=== PATIENT | female | born 1955 | race Caucasian/White ===

== ENCOUNTER 2018-04-12 11:22 | Outpatient (CLI) | payer OTHER ==
[~2018-04-12] VITALS: Ht 157.5 cm; Wt 57.6 kg
== END 2018-04-12 13:22 | disposition home or self-care (01) ==
LOC: ECT 11:22
DX: F33.3 Major depressive disorder, recurrent, severe with psychotic symptoms (principal); D64.9 Anemia, unspecified; E78.5 Hyperlipidemia, unspecified; E03.9 Hypothyroidism, unspecified; E28.39 Other primary ovarian failure

== ENCOUNTER 2018-04-14 10:19 | Outpatient (RCR) | payer OTHER ==
[~2018-04-14] VITALS: Ht 157.5 cm; Wt 57.6 kg
[2018-04-14 09:53] VITALS: BP 130/83
[2018-04-14 10:15] VITALS: BP 141/75
[2018-04-14 10:20] VITALS: BP 136/65
[2018-04-14] MEDS ORDERED: Methohexital Sodium Syr 100mg/10ml IVP ONE (10:20)
[2018-04-14] MEDS ORDERED: NS 500ML ONE (10:20)
[2018-04-14] MEDS ORDERED: Succinylcholine 20mg/ml 10ml vial ONE (10:20)
[2018-04-14 10:25] VITALS: BP 125/69
[2018-04-14 10:30] VITALS: BP 128/71
[2018-04-14 10:35] VITALS: BP 151/74
[2018-04-17] MEDS ORDERED: Methohexital Sodium Syr 100mg/10ml IVP ONE (06:00)
[2018-04-17] MEDS ORDERED: NS 500ML ONE (06:00)
[2018-04-17] MEDS ORDERED: Succinylcholine 20mg/ml 10ml vial ONE (06:00)
[2018-04-17 08:54] VITALS: BP 138/88
[2018-04-17 09:10] VITALS: BP 134/56
[2018-04-17 09:15] VITALS: BP 135/68
[2018-04-17 09:20] VITALS: BP 144/99
[2018-04-17 09:25] VITALS: BP 133/76
[2018-04-19] MEDS ORDERED: Methohexital Sodium Syr 100mg/10ml IVP ONE (06:00)
[2018-04-19] MEDS ORDERED: NS 500ML ONE (06:00)
[2018-04-19] MEDS ORDERED: Succinylcholine 20mg/ml 10ml vial ONE (06:00)
[2018-04-19 08:40] VITALS: BP 122/81
[2018-04-19 08:55] VITALS: BP 127/70
[2018-04-19 09:00] VITALS: BP 132/73
[2018-04-19 09:05] VITALS: BP 130/77
[2018-04-19 09:10] VITALS: BP 132/82
[2018-04-21 08:37] VITALS: BP 121/78
[2018-04-21 08:50] VITALS: BP 141/82
[2018-04-21 08:55] VITALS: BP 141/82
[2018-04-21 09:00] VITALS: BP 139/60
[2018-04-21] MEDS ORDERED: Methohexital Sodium Syr 100mg/10ml IVP ONE (09:00)
[2018-04-21] MEDS ORDERED: Succinylcholine 20mg/ml 10ml vial ONE (09:00)
[2018-04-21] MEDS ORDERED: NS 500ML ONE (09:00)
[2018-04-21 09:05] VITALS: BP 128/82
[2018-04-24] MEDS ORDERED: Succinylcholine 20mg/ml 10ml vial ONE (06:00)
[2018-04-24] MEDS ORDERED: NS 500ML ONE (06:00)
[2018-04-24] MEDS ORDERED: Methohexital Sodium Syr 100mg/10ml IVP ONE (06:00)
[2018-04-24 08:53] VITALS: BP 107/78
[2018-04-24 09:06] VITALS: BP 128/76
[2018-04-24 09:11] VITALS: BP 134/79
[2018-04-24 09:16] VITALS: BP 120/64
[2018-04-24 09:21] VITALS: BP 124/61
[2018-04-26] MEDS ORDERED: Succinylcholine 20mg/ml 10ml vial ONE (06:00)
[2018-04-26 08:30] VITALS: BP 107/75
[2018-04-26 08:45] VITALS: BP 121/68
[2018-04-26 08:50] VITALS: BP 127/57
[2018-04-26 08:55] VITALS: BP 125/68
[2018-04-26 09:00] VITALS: BP 127/77
[2018-04-27] MEDS ORDERED: Esmolol 100mg/10ml Inj ONE (22:46)
[2018-04-27] MEDS ORDERED: NS 500ML ONE (22:46)
[2018-04-27] MEDS ORDERED: Succinylcholine 20mg/ml 10ml vial ONE (22:46)
== END 2018-04-27 | disposition home or self-care (01) ==
LOC: ECT 10:19
DX: F33.3 Major depressive disorder, recurrent, severe with psychotic symptoms (principal); D64.9 Anemia, unspecified; E03.9 Hypothyroidism, unspecified; E78.5 Hyperlipidemia, unspecified
CPT/HCPCS: 90870; J0330; J7040

== ENCOUNTER 2018-04-28 08:33 | Outpatient (RCR) | payer OTHER ==
[~2018-04-28] VITALS: Ht 157.5 cm; Wt 58.0 kg
[2018-04-28] MEDS ORDERED: Methohexital Sodium Syr 100mg/10ml IVP ONE (08:34)
[2018-04-28] MEDS ORDERED: Succinylcholine 20mg/ml 10ml vial ONE ×2 (08:34)
[2018-04-28] MEDS ORDERED: NS 500ML ONE (08:34)
[2018-04-28 08:46] VITALS: BP 91/59
[2018-04-28 09:05] VITALS: BP 129/67
[2018-04-28 09:10] VITALS: BP 114/65
[2018-04-28 09:15] VITALS: BP 114/64
[2018-04-28 09:20] VITALS: BP 112/57
[2018-05-01] MEDS ORDERED: Methohexital Sodium Syr 100mg/10ml IVP ONE (08:00)
[2018-05-01] MEDS ORDERED: NS 500ML ONE (08:00)
[2018-05-01] MEDS ORDERED: Succinylcholine 20mg/ml 10ml vial ONE (08:00)
[2018-05-01 09:05] VITALS: BP 103/72
[2018-05-01 09:20] VITALS: BP 142/77
[2018-05-01 09:25] VITALS: BP 135/73
[2018-05-01 09:30] VITALS: BP 130/69
[2018-05-01 09:35] VITALS: BP 126/72
[2018-05-08] MEDS ORDERED: Methohexital Sodium Syr 100mg/10ml IVP ONE (07:00)
[2018-05-08] MEDS ORDERED: Succinylcholine 20mg/ml 10ml vial ONE (07:00)
[2018-05-08] MEDS ORDERED: NS 500ML ONE (07:00)
[2018-05-08 07:38] VITALS: BP 96/67
[2018-05-08 07:55] VITALS: BP 130/62
[2018-05-08 08:00] VITALS: BP 130/67
[2018-05-08 08:05] VITALS: BP 137/70
[2018-05-08 08:10] VITALS: BP 134/66
[2018-05-22] MEDS ORDERED: Methohexital Sodium Syr 100mg/10ml IVP ONE (06:00)
[2018-05-22] MEDS ORDERED: NS 500ML ONE (06:00)
[2018-05-22] MEDS ORDERED: Succinylcholine 20mg/ml 10ml vial ONE (06:00)
[2018-05-22 07:26] VITALS: BP 117/76
[2018-05-22] MEDS ORDERED: Atropine Sulfate 0.4mg/ml inj IVP PRN (07:48)
[2018-05-22 07:50] VITALS: BP 132/76
[2018-05-22 07:55] VITALS: BP 145/78
[2018-05-22 08:00] VITALS: BP 146/81
[2018-05-22 08:05] VITALS: BP 138/81
== END 2018-05-28 | disposition home or self-care (01) ==
LOC: ECT 08:33
DX: F33.3 Major depressive disorder, recurrent, severe with psychotic symptoms (principal)
CPT/HCPCS: 90870; J0330; J7040

== ENCOUNTER 2018-06-05 06:17 | Outpatient (RCR) | payer OTHER ==
[~2018-06-05] VITALS: Ht 157.5 cm; Wt 57.6 kg
[2018-06-05] MEDS ORDERED: NS 500ML ONE (06:18)
[2018-06-05] MEDS ORDERED: Methohexital Sodium Syr 100mg/10ml IVP ONE (06:18)
[2018-06-05] MEDS ORDERED: Succinylcholine 20mg/ml 10ml vial ONE (06:18)
[2018-06-05 07:41] VITALS: BP 119/85
[2018-06-05 07:55] VITALS: BP 154/77
[2018-06-05 08:00] VITALS: BP 151/70
[2018-06-05 08:05] VITALS: BP 143/73
[2018-06-05 08:10] VITALS: BP 135/77
== END 2018-06-27 | disposition home or self-care (01) ==
LOC: ECT 06:17
DX: F33.3 Major depressive disorder, recurrent, severe with psychotic symptoms (principal)
CPT/HCPCS: 90870; J0330; J7040

== ENCOUNTER 2018-06-30 05:07 | Outpatient (RCR) | payer OTHER ==
[~2018-06-30] VITALS: Ht 30.5 cm; Wt 0.5 kg
[2018-06-30] MEDS ORDERED: NS 500ML ONE (05:08)
[2018-06-30] MEDS ORDERED: Succinylcholine 20mg/ml 10ml vial ONE (05:08)
[2018-06-30] MEDS ORDERED: Methohexital Sodium Syr 100mg/10ml IVP ONE (05:08)
[2018-06-30 07:47] VITALS: BP 120/78
[2018-06-30 07:58] VITALS: BP 132/53
[2018-06-30 08:03] VITALS: BP 131/48
[2018-06-30 08:08] VITALS: BP 119/56
[2018-06-30 08:13] VITALS: BP 129/74
[2018-07-28 07:48] VITALS: BP 131/82
[2018-07-28 08:00] VITALS: BP 140/83
[2018-07-28 08:05] VITALS: BP 134/73
[2018-07-28 08:10] VITALS: BP 128/71
[2018-07-28 08:15] VITALS: BP 139/83
[2018-07-28] MEDS ORDERED: NS 500ML ONE (09:00)
[2018-07-28] MEDS ORDERED: Methohexital Sodium Syr 100mg/10ml IVP ONE (09:00)
[2018-07-28] MEDS ORDERED: Succinylcholine 20mg/ml 10ml vial ONE (09:00)
== END 2018-07-28 | disposition home or self-care (01) ==
LOC: ECT 05:07
DX: F33.3 Major depressive disorder, recurrent, severe with psychotic symptoms (principal)
CPT/HCPCS: 90870; J0330; J7040

== ENCOUNTER 2018-08-25 04:18 | Outpatient (RCR) | payer OTHER ==
[~2018-08-25] VITALS: Ht 30.5 cm; Wt 0.5 kg
[2018-08-25 07:49] VITALS: BP 128/84
[2018-08-25 08:05] VITALS: BP 145/65
[2018-08-25 08:10] VITALS: BP 136/72
[2018-08-25 08:15] VITALS: BP 150/75
[2018-08-25 08:20] VITALS: BP 167/81
== END 2018-08-27 | disposition home or self-care (01) ==
LOC: ECT 04:18
DX: F33.3 Major depressive disorder, recurrent, severe with psychotic symptoms (principal)
CPT/HCPCS: 90870

== ENCOUNTER 2018-09-22 05:03 | Outpatient (RCR) | payer OTHER ==
[~2018-09-22] VITALS: Ht 30.5 cm; Wt 0.5 kg
[2018-09-22] MEDS ORDERED: Methohexital Sodium 500mg Vial IVP ONE (05:04)
[2018-09-22] MEDS ORDERED: Succinylcholine 20mg/ml 10ml vial ONE (05:04)
[2018-09-22] MEDS ORDERED: NS 500ML ONE (05:04)
[2018-09-22 08:07] VITALS: BP 131/87
[2018-09-22 08:25] VITALS: BP 141/77
[2018-09-22 08:30] VITALS: BP 141/75
[2018-09-22 08:35] VITALS: BP 145/87
[2018-09-22 08:40] VITALS: BP 157/80
== END 2018-09-27 | disposition home or self-care (01) ==
LOC: ECT 05:03
DX: F33.3 Major depressive disorder, recurrent, severe with psychotic symptoms (principal)
CPT/HCPCS: 90870; J0330; J3490; J7040

== ENCOUNTER 2018-10-20 04:21 | Outpatient (RCR) | payer OTHER ==
[~2018-10-20] VITALS: Ht 157.5 cm; Wt 57.6 kg
[2018-10-20] MEDS ORDERED: NS 500ML ONE (04:22)
[2018-10-20] MEDS ORDERED: Methohexital Sodium Syr 100mg/10ml IVP ONE (04:22)
[2018-10-20] MEDS ORDERED: Succinylcholine 20mg/ml 10ml vial ONE (04:22)
[2018-10-20 07:53] VITALS: BP 130/83
[2018-10-20 08:05] VITALS: BP 139/67
[2018-10-20 08:10] VITALS: BP 139/71
[2018-10-20 08:15] VITALS: BP 139/71
[2018-10-20 08:20] VITALS: BP 147/72
== END 2018-10-28 | disposition home or self-care (01) ==
LOC: ECT 04:21
DX: F33.3 Major depressive disorder, recurrent, severe with psychotic symptoms (principal)
CPT/HCPCS: 90870; J0330; J7040

== ENCOUNTER 2018-11-17 04:26 | Outpatient (RCR) | payer OTHER ==
[~2018-11-17] VITALS: Ht 157.5 cm; Wt 57.6 kg
[2018-11-17] MEDS ORDERED: NS 500ML ONE (06:00)
[2018-11-17] MEDS ORDERED: Succinylcholine 20mg/ml 10ml vial ONE (06:00)
[2018-11-17] MEDS ORDERED: Methohexital Sodium Syr 100mg/10ml IVP ONE (06:00)
[2018-11-17 07:45] VITALS: BP 152/92
[2018-11-17 08:00] VITALS: BP 147/75
[2018-11-17 08:05] VITALS: BP 148/89
[2018-11-17 08:10] VITALS: BP 166/85
[2018-11-17 08:15] VITALS: BP 157/81
== END 2018-11-27 | disposition home or self-care (01) ==
LOC: ECT 04:26
DX: F33.3 Major depressive disorder, recurrent, severe with psychotic symptoms (principal)
CPT/HCPCS: 90870; J0330; J7040

== ENCOUNTER → 2019-10-01 | Outpatient (CLI) | payer OTHER | END | disposition home or self-care (01) | LOC: ECT 12:07 | DX: F33.3 Major depressive disorder, recurrent, severe with psychotic symptoms (principal); E03.9 Hypothyroidism, unspecified; E78.5 Hyperlipidemia, unspecified; Z79.899 Other long term (current) drug therapy; Z88.2 Allergy status to sulfonamides ==

== ENCOUNTER 2019-10-08 07:29 | Outpatient (RCR) | payer OTHER ==
[~2019-10-08] VITALS: Ht 157.5 cm; Wt 53.5 kg
[2019-10-08] VITALS (8 sets, daily range): BP systolic 133–149; BP diastolic 71–85
[~2019-10-08 07:29] MED LIST: Methohexital Sodium Syr 100mg/10ml IVP ONE; NS 500ML ONE; Succinylcholine 20mg/ml 10ml vial ONE
[2019-10-08] MEDS ORDERED: Succinylcholine 20mg/ml 10ml vial ONE (07:30)
[2019-10-08] MEDS ORDERED: Methohexital Sodium Syr 100mg/10ml IVP ONE (07:30)
[2019-10-08] MEDS ORDERED: NS 500ML ONE (07:30)
[2019-10-08] MEDS ORDERED: Atropine Sulfate 0.4mg/ml inj IVP PRN (09:14)
[2019-10-08] MEDS ORDERED: Lidocaine 2% 100mg/5ml Carp IV PRN (09:14)
[2019-10-10] VITALS (7 sets, daily range): BP systolic 130–140; BP diastolic 64–88
[2019-10-10] MEDS ORDERED: Methohexital Sodium Syr 100mg/10ml IVP ONE (07:00)
[2019-10-10] MEDS ORDERED: Succinylcholine 20mg/ml 10ml vial ONE (07:00)
[2019-10-10] MEDS ORDERED: NS 500ML ONE (07:00)
[2019-10-10] MEDS ORDERED: Atropine Sulfate 0.4mg/ml inj IVP PRN (09:14)
[2019-10-12] VITALS (7 sets, daily range): BP systolic 130–148; BP diastolic 63–94
[2019-10-12] MEDS ORDERED: Methohexital Sodium Syr 100mg/10ml IVP ONE (07:00)
[2019-10-12] MEDS ORDERED: Succinylcholine 20mg/ml 10ml vial ONE (07:00)
[2019-10-12] MEDS ORDERED: NS 500ML ONE (07:00)
[2019-10-15] VITALS (7 sets, daily range): BP systolic 115–127; BP diastolic 60–75
[2019-10-15] MEDS ORDERED: NS 500ML ONE (09:00)
[2019-10-15] MEDS ORDERED: Succinylcholine 20mg/ml 10ml vial ONE (09:00)
[2019-10-15] MEDS ORDERED: Methohexital Sodium Syr 100mg/10ml IVP ONE (09:00)
[2019-10-15] MEDS ORDERED: Atropine Sulfate 0.4mg/ml inj IVP PRN (09:29)
[2019-10-17 08:43] VITALS: BP 128/84
[2019-10-17 08:55] VITALS: BP 125/64
[2019-10-17] MEDS ORDERED: Succinylcholine 20mg/ml 10ml vial ONE (09:00)
[2019-10-17] MEDS ORDERED: NS 500ML ONE (09:00)
[2019-10-17] MEDS ORDERED: Methohexital Sodium Syr 100mg/10ml IVP ONE (09:00)
[2019-10-17 09:05] VITALS: BP 138/70
[2019-10-17 09:10] VITALS: BP 144/72
[2019-10-17 09:15] VITALS: BP 145/62
[2019-10-17 09:20] VITALS: BP 146/64
[2019-10-19] VITALS (7 sets, daily range): BP systolic 123–145; BP diastolic 67–82
[2019-10-22] VITALS (7 sets, daily range): BP systolic 125–139; BP diastolic 67–87
[2019-10-22] MEDS ORDERED: NS 500ML ONE (08:00)
[2019-10-22] MEDS ORDERED: Methohexital Sodium Syr 100mg/10ml IVP ONE (08:00)
[2019-10-22] MEDS ORDERED: Succinylcholine 20mg/ml 10ml vial ONE (08:00)
[2019-10-22] MEDS ORDERED: Atropine Sulfate 0.4mg/ml inj IVP PRN (08:44)
[2019-10-24] VITALS (7 sets, daily range): BP systolic 122–146; BP diastolic 68–79
[2019-10-24] MEDS ORDERED: NS 500ML ONE (07:00)
[2019-10-24] MEDS ORDERED: Succinylcholine 20mg/ml 10ml vial ONE (07:00)
[2019-10-24] MEDS ORDERED: Methohexital Sodium Syr 100mg/10ml IVP ONE (07:00)
[2019-10-24] MEDS ORDERED: Atropine Sulfate 0.4mg/ml inj IVP PRN (09:09)
[2019-10-26] VITALS (7 sets, daily range): BP systolic 111–140; BP diastolic 64–72
[2019-10-26] MEDS ORDERED: Succinylcholine 20mg/ml 10ml vial ONE (08:00)
[2019-10-26] MEDS ORDERED: NS 500ML ONE (08:00)
[2019-10-26] MEDS ORDERED: Methohexital Sodium Syr 100mg/10ml IVP ONE (08:00)
== END 2019-10-29 | disposition home or self-care (01) ==
LOC: ECT 07:29
DX: F33.3 Major depressive disorder, recurrent, severe with psychotic symptoms (principal); E03.9 Hypothyroidism, unspecified; E78.5 Hyperlipidemia, unspecified; K58.9 Irritable bowel syndrome, unspecified; I70.0 Atherosclerosis of aorta; R91.8 Other nonspecific abnormal finding of lung field; D64.9 Anemia, unspecified
CPT/HCPCS: 90870; J0330; J7040

== ENCOUNTER 2019-10-31 08:12 | Outpatient (RCR) | payer OTHER ==
[~2019-10-31] VITALS: Ht 157.5 cm; Wt 53.5 kg
[2019-10-31] VITALS (7 sets, daily range): BP systolic 131–168; BP diastolic 43–91
[~2019-10-31 08:12] MED LIST changes: +Methohexita Syr 100mg/10ml IVP ONE; -Methohexital Sodium Syr 100mg/10ml IVP ONE
[2019-10-31] MEDS ORDERED: Methohexita Syr 100mg/10ml IVP ONE (08:13)
[2019-10-31] MEDS ORDERED: Succinylcholine 20mg/ml 10ml vial ONE (08:13)
[2019-10-31] MEDS ORDERED: NS 500ML ONE (08:13)
[2019-11-07] VITALS (7 sets, daily range): BP systolic 134–147; BP diastolic 62–86
[2019-11-21] VITALS (7 sets, daily range): BP systolic 125–143; BP diastolic 64–87
[2019-11-21] MEDS ORDERED: Succinylcholine 20mg/ml 10ml vial ONE (06:00)
[2019-11-21] MEDS ORDERED: Methohexita Syr 100mg/10ml IVP ONE (06:00)
[2019-11-21] MEDS ORDERED: NS 500ML ONE (06:00)
[2019-11-21] MEDS ORDERED: Atropine Sulfate 0.4mg/ml inj IVP PRN (09:54)
== END 2019-11-28 | disposition home or self-care (01) ==
LOC: ECT 08:12
DX: F33.3 Major depressive disorder, recurrent, severe with psychotic symptoms (principal)
CPT/HCPCS: 90870; J0330; J7040

== ENCOUNTER 2019-12-12 04:44 | Outpatient (RCR) | payer OTHER ==
[~2019-12-12] VITALS: Ht 157.5 cm; Wt 53.5 kg
[2019-12-12] MEDS ORDERED: NS 500ML ONE (04:45)
[2019-12-12] MEDS ORDERED: Succinylcholine 20mg/ml 10ml vial ONE (04:45)
[2019-12-12] MEDS ORDERED: Methohexital Sodium Syr 100mg/10ml IVP ONE (04:45)
[2019-12-12 08:31] VITALS: BP 135/88
[2019-12-12 08:49] VITALS: BP 131/73
[2019-12-12 08:59] VITALS: BP 155/78
[2019-12-12 09:04] VITALS: BP 156/72
[2019-12-12 09:09] VITALS: BP 149/64
[2019-12-12 09:14] VITALS: BP 150/69
== END 2019-12-29 | disposition home or self-care (01) ==
LOC: ECT 04:44
DX: F33.3 Major depressive disorder, recurrent, severe with psychotic symptoms (principal)
CPT/HCPCS: 90870; J0330; J7040

== ENCOUNTER 2020-01-09 04:42 | Outpatient (RCR) | payer MEDICARE, OTHER ==
[2020-01-09] VITALS (7 sets, daily range): BP systolic 133–152; BP diastolic 66–88
[~2020-01-09] VITALS: Ht 157.5 cm; Wt 53.5 kg
[2020-01-09] MEDS ORDERED: Methohexita Syr 100mg/10ml IVP ONE (06:00)
[2020-01-09] MEDS ORDERED: Succinylcholine 20mg/ml 10ml vial ONE (06:00)
[2020-01-09] MEDS ORDERED: NS 500ML ONE (06:00)
[2020-01-09] MEDS ORDERED: Atropine Sulfate 0.4mg/ml inj IVP PRN (08:29)
== END 2020-01-28 | disposition home or self-care (01) ==
LOC: ECT 04:42
DX: F33.3 Major depressive disorder, recurrent, severe with psychotic symptoms (principal)
CPT/HCPCS: 90870; J0330; J7040

== ENCOUNTER 2020-02-06 04:42 | Outpatient (RCR) | payer OTHER ==
[~2020-02-06] VITALS: Ht 30.5 cm; Wt 0.5 kg
[2020-02-13] VITALS (7 sets, daily range): BP systolic 129–161; BP diastolic 66–91
[2020-02-13] MEDS ORDERED: Methohexita Syr 100mg/10ml IVP ONE (06:00)
[2020-02-13] MEDS ORDERED: NS 500ML ONE (06:00)
[2020-02-13] MEDS ORDERED: Succinylcholine 20mg/ml 10ml vial ONE (06:00)
== END 2020-02-28 | disposition home or self-care (01) ==
LOC: ECT 04:42
DX: F33.3 Major depressive disorder, recurrent, severe with psychotic symptoms (principal)
CPT/HCPCS: 90870; J0330; J7040

== ENCOUNTER 2020-03-19 05:22 | Outpatient (RCR) | payer OTHER ==
[2020-03-19] VITALS (7 sets, daily range): BP systolic 135–147; BP diastolic 60–91
[~2020-03-19] VITALS: Ht 157.5 cm; Wt 53.5 kg
[2020-03-19] MEDS ORDERED: NS 500ML ONE (05:23)
[2020-03-19] MEDS ORDERED: Methohexita Syr 100mg/10ml IVP ONE (05:23)
[2020-03-19] MEDS ORDERED: Succinylcholine 20mg/ml 10ml vial ONE (05:23)
== END 2020-03-30 | disposition home or self-care (01) ==
LOC: ECT 05:22
DX: F33.3 Major depressive disorder, recurrent, severe with psychotic symptoms (principal)
CPT/HCPCS: 90870; J0330; J7040

== ENCOUNTER 2020-04-23 05:41 | Outpatient (RCR) | payer OTHER ==
[~2020-04-23] VITALS: Ht 157.5 cm; Wt 53.5 kg
[2020-04-23] VITALS (7 sets, daily range): BP systolic 133–145; BP diastolic 72–91
[2020-04-23] MEDS ORDERED: Methohexita Syr 100mg/10ml IVP ONE (05:42)
[2020-04-23] MEDS ORDERED: NS 500ML ONE (05:42)
[2020-04-23] MEDS ORDERED: Succinylcholine 20mg/ml 10ml vial ONE (05:42)
== END 2020-04-27 | disposition home or self-care (01) ==
LOC: ECT 05:41
DX: F33.3 Major depressive disorder, recurrent, severe with psychotic symptoms (principal)
CPT/HCPCS: 90870; J0330; J7040